=== PATIENT | male | born 1970 | race Caucasian/White ===

== ENCOUNTER 2019-09-05 15:07 | Observation (INO) | payer BC ==
--- NOTE | 2019-09-05 15:41 | ED ---
HPI Chest Pain - HPI Summary HPI Summary: This patient is a 49 year old F presenting to ED with a chief complaint of intermittent chest pain, diaphoresis, and shortness of breath since yesterday. Patient has recently been complaining of intermittent chest pain. Patient reports having cold sweats for the past two weeks. Patient has not had a fever, cough. Since yesterday, patients heart has been skipping all day, which is the first time that has ever happened. PMHx of HTN, CHF, DM. No history of DVT, PE, or atrial fibrillation. The patient rates the pain 3/10 in severity. Symptoms aggravated by nothing. Symptoms alleviated by nothing. - History of Current Complaint Chief Complaint: EDChestPainROMI Hx Obtained From: Patient Onset/Duration: Started Days Ago, Still Present Timing: Intermittent Initial Severity: Mild Current Severity: Mild Pain Intensity: 3 Pain Scale Used: 0-10 Numeric Character: Skipped Beats Aggravating Factor(s): Nothing Alleviating Factor(s): Nothing Associated Signs and Symptoms: Positive: Chest Pain, Shortness of Breath, Diaphoresis, Palpitations. Negative: Fever, Cough - Allergy/Home Medications Allergies/Adverse Reactions: Allergies Allergy/AdvReac Type Severity Reaction Status Date / Time Penicillins Allergy Unknown Verified 09/05/19 15:17 Reaction Details PMH/Surg Hx/FS Hx/Imm Hx Endocrine/Hematology History: Reports: Hx Diabetes Cardiovascular History: Reports: Hx Congestive Heart Failure, Hx Hypertension - Surgical History Surgery Procedure, Year, and Place: Denies Infectious Disease History: No Infectious Disease History: Denies: Traveled Outside the [place] in Last 30 Days - Family History Known Family History: Positive: Cardiac Disease - Social History Alcohol Use: None Hx Substance Use: No Substance Use Type: Reports: None Hx Tobacco Use: Yes Smoking Status (MU): Never Smoked Tobacco Do You Chew or Dip Tobacco: Yes Review of Systems Positive: Skin Diaphoresis. Negative: Fever Positive: Palpitations, Chest Pain Positive: Shortness Of Breath. Negative: Cough All Other Systems Reviewed And Are Negative: Yes Physical Exam - Summary Physical Exam Summary: Constitutional: Morbidly obese Skin: Warm, Dry HENT: Normocephalic; Atraumatic Eyes: Conjunctiva normal Neck: Musculoskeletal ROM normal neck. (-) JVD, (-) Stridor, (-) Tracheal deviation Cardio: Irregular rhythm. Pulmonary/Chest wall: Decreased breath sounds bilaterally secondary to body habitus. Abd: Obese, non-tender, no distension. Musculoskeletal: Bilateral lower extremity lymphedema, no calf tenderness. Lymph: (-) Cervical adenopathy Neuro: Alert, Oriented x3 Psych: Mood and affect Normal Triage Information Reviewed: Yes Vital Signs On Initial Exam: Initial Vitals Temp Pulse Resp BP Pulse Ox 97.1 F 91 16 151/95 97 09/05/19 15:15 09/05/19 15:15 09/05/19 15:15 09/05/19 15:15 09/05/19 15:15 Vital Signs Reviewed: Yes Procedures - Sedation Patient Received Moderate/Deep Sedation with Procedure: No Diagnostics - Vital Signs Vital Signs Temp Pulse Resp BP Pulse Ox 09/05/19 15:15 97.1 F 91 16 151/95 97 - Laboratory Result Diagrams: 09/05/19 15:39 09/05/19 15:38 Lab Statement: Any lab studies that have been ordered have been reviewed, and results considered in the medical decision making process. - Radiology CXR Radiology Interpretation Completed By: Radiologist Summary of Radiographic Findings: #. No acute pulmonary or cardiac process evident. Dr. Cardoza has reviewed this radiology report. - CT Chest/thorax CTA CT Interpretation Completed By: Radiologist Summary of CT Findings: #. Limited exam without gross evidence for pulmonary embolism. #. Mild bilateral subsegmental atelectasis. No compelling pneumonia or suspicious focal pulmonary lesions. Negative for pleural effusions or pneumothorax. #. No compelling evidence for pulmonary edema. Dr. Cardoza has reviewed this radiology report - EKG 1512 Cardiac Rate: NL - 95 BPM EKG Rhythm: Atrial Fibrillation Summary of EKG Findings: An EKG at 1512 revealed atrial fibrillation at 95 BPM, RBBB, no STEMI. Dr. Cardoza has reviewed and interpreted this EKG. Re-Evaluation - Re-Evaluation First Eval Re-Evaluation Time: 17:59 Comment: Discussed results with patient. Patient states that he does not want to be admitted to [facility]. Second Eval Re-Evaluation Time: 18:10 Comment: Discussed CTA results and Dr. Díaz's recommendations with patient. Patient agrees to be admitted. Chest Pain Course/Dx - Course Course Of Treatment: This patient is a 49 year old F presenting to ED with a chief complaint of intermittent chest pain, diaphoresis, and shortness of breath since yesterday. When patient stood up to get on the weight scale, his HR jumped to 145. An EKG at 1512 revealed atrial fibrillation at 95 BPM, RBBB, no STEMI. CXR: #. No acute pulmonary or cardiac process evident. Blood work revealed BUN 25, BUN/creatinine ratio 23.1, glucose 234, and BNP 222. Chest/ thorax CTA: #. Limited exam without gross evidence for pulmonary embolism. #. Mild bilateral subsegmental atelectasis. No compelling pneumonia or suspicious focal pulmonary lesions. Negative for pleural effusions or pneumothorax. #. No compelling evidence for pulmonary edema. Discussed patient case with Dr. Díaz , special day class teacher, who strongly recommended the patient be admitted for an echo and potential cardioversion. I gave the patient heparin. Discussed patient case with Dr. Flowers, hospitalist, who accepted the patient for admission to [facility]. - Diagnoses Provider Diagnoses: New onset a-fib, Morbid obesity - Provider Notifications Discussed Care Of Patient With: Josh Díaz Time Discussed With Above Provider: 18:05 Instructed by Provider To: Admit As Observation - Discussed patient case with Dr. Díaz, special day class teacher, who strongly recommended the patient be admitted. He also suggested heparin. At 1843, discussed patient case with Dr. Flowers, hospitalist, who accepted the patient for admission to [facility]. Discharge ED - Sign-Out/Discharge Documenting (check all that apply): Patient Departure - Admit - Discharge Plan Condition: Fair Disposition: ADMITTED TO [facility] Referrals: Elizabeth Ross [Primary Care Provider] - - Billing Disposition and Condition Condition: FAIR Disposition: Admitted to [facility] - Attestation Statements Document Initiated by Renue: Yes Documenting Scribe: Alejandro Savage Provider For Whom Sherita is Documenting (Include Credential): Steven Cardoza DO Scribe Attestation: IAlejandro scribed for Steven Cardoza DO on 09/05/19 at 1905. Scribe Documentation Reviewed: Yes Provider Attestation: The documentation as recorded by the Alejandro zafar accurately reflects the service I personally performed and the decisions made by me, Steven Cardoza DO Status of Scribe Document: Viewed
[2019-09-05 15:48] LABS: ABS Eosinophils 0.3 10^3/ul (0-0.6); ABS Lymphocytes 1.9 10^3/ul (1.0-4.8); ABS Monocytes 0.6 10^3/ul (0-0.8); ABS Neutrophils 5.7 10^3/ul (1.5-7.7); Eosinophil % 3.2 %; Hematocrit 45 % (42-52); Hemoglobin 15.1 g/dL (14.0-18.0); Lymphocyte % 22.5 %; Mean Corpuscular HGB Conc 34 g/dL (31-36); Mean Corpuscular Hemoglobin 30 pg (27-31); Mean Corpuscular Volume 90 fL (80-94); Mean Platelet Volume 7.9 fL (7.4-10.4); Nucleated Red Blood Cells % 0.2; Platelet Count 315 10^3/uL (150-450); Red Blood Count 5.02 10^6 /uL (4.18-5.48); Red Cell Distribution Width 15 % (10-15); White Blood Count 8.6 10^3/uL (3.5-10.8)
[2019-09-05 15:57] LABS: Activated Partial Thrombo Time 35.2 seconds (26.0-38.0); INR 0.94 (0.82-1.09)
[2019-09-05 16:14] LABS: Albumin 4.4 g/dL (3.2-5.2); Albumin/Globulin Ratio 1.4 (1-3); BUN/Creatinine Ratio 23.1 (8-20); Calcium 9.5 mg/dL (8.6-10.3); EGFR African American 88.3 (>60); Globulin 3.1 g/dL (2-4); Potassium 4.1 mmol/L (3.5-5.0); Total Bilirubin 0.8 mg/dL (0.2-1.0); Total Protein 7.5 g/dL (6.4-8.9)
[2019-09-05] MEDS ORDERED: NS 0.9% 1000 ML** 1,000 ML IV ONE (16:47)
[2019-09-05] MEDS ORDERED: Iohexol 350* (CONTRAST) 500 ML MDV IV ONE (16:55)
[2019-09-05] MEDS ORDERED: Iodixanol* (CONTRAST) 320 MG/ML 100 ML SDV IV ONE (17:18)
[2019-09-05] MEDS: Heparin VIAL(*) 5000 UNITS/ML VIAL (FIVE THOUSAND) IV SCH (18:52)
[2019-09-05] MEDS: Heparin DRIP 25,000 UNITS(*) 25,000 UNITS/500 ML BAG IV SCH ×2 (18:53→21:08)
[2019-09-05 19:04] LABS: Troponin I 0.03 ng/mL (<0.03)
[2019-09-05] MEDS ORDERED: Dextrose 50% Syringe 50 ML* 25 GM/50 ML SYRINGE IV PUSH PRN (19:52)
[2019-09-05] MEDS: oxyCODONE/Acetamin 5/325 MG* TAB PO PRN (20:27)
[2019-09-05] MEDS: oxyCODONE TAB* 5 MG TAB PO PRN (20:27)
[2019-09-05] MEDS: Insulin LISPRO* 1 UNITS UNIT SUBCUT SCH (22:05)
[2019-09-05] MEDS: Gabapentin CAP(*) 100 MG PO SCH (22:22)
[2019-09-05] MEDS: Metoprolol Tartrate TAB* 50 mg PO SCH (22:24)
--- NOTE | 2019-09-05 22:44 | HP ---
CC: EFREN Kraft; Dr. Josh Díaz * HISTORY AND PHYSICAL: DATE OF ADMISSION: 09/05/19 PRIMARY CARE PROVIDER: EFREN Kraft CHIEF COMPLAINT: Heart skipping beats, chest discomfort. HISTORY OF PRESENT ILLNESS: Mr. Yan Bowen is a 49-year-old male with past medical history of type 2 diabetes, neuropathy, hernia, lymphedema, hypertension , who now presents to the emergency room because of a sensation that his heart is skipping beats. He reports that about 2 weeks ago, he had chest discomfort for 2 days, which was intermittent chest pain, it resolved on its own. Shortly thereafter, he started to feel unwell associated with sensation that his heart is skipping beat. This is associated with cold sweat, the issue did not resolve on its own, so the patient decided to come to the emergency room. He does not have any fevers, he does not have any shortness of breath, no palpitations per se, but he feels as if the heart is skipping beats, no orthopnea, he does have sleep apnea for which he uses CPAP. The patient does not have any history of bleeding, no episodes where he required a blood transfusion, he reports his last bowel movement was yesterday, his stool is typically brown with no blood. No dark discoloration. In the emergency room, the patient was seen and evaluated, blood work, EKG, imaging were obtained. Emergency room physician did speak with Dr. Díaz, kindergarten assistant, who recommended admitting the patient to the hospital, subsequently the hospitalist service was contacted. It should be noted that the patient's heart rate is going in to the 110's when the patient ambulates or does any exertion. PAST MEDICAL HISTORY: 1. Type 2 diabetes. 2. Neuropathy. 3. Lymphedema. 4. Hypertension. 5. Episodes of cellulitis. 6. Umbilical hernia. PAST SURGICAL HISTORY: Pyloric stenosis surgery as an . HOME MEDICATIONS: Include: 1. Oxycodone/Tylenol 10/325 one tab every 5 hours as needed for moderate pain. 2. Ozempic 0.5 mg subcutaneous weekly. 3. Metformin 1000 mg b.i.d. 4. Tresiba 34 units subcu daily. 5. Jardiance 25 mg daily. 6. Cymbalta 60 mg daily. 8. Motrin 800 mg b.i.d. 9. Neurontin 200 mg twice a day. 10. Micardis/telmisartan 40 mg daily. 11. Allopurinol 100 mg daily. 12. Bystolic 5 mg daily. 13. Lasix 40 mg daily. 14. Nitroglycerin 0.4 mg sublingual every 5 hours as needed. 15. Aspirin 81 mg daily. ALLERGIES: Include PENICILLIN. FAMILY HISTORY: Mother: Hypertension, seizures, DVT. Father side of the family has heart disease, his father at age 59, his father's initial heart attack was at age 36. SOCIAL HISTORY: The patient lives at home, is self-employed as a compliance representative dealer , he chews tobacco with occasional alcohol use. The patient is , has children. REVIEW OF SYSTEMS: The patient does not have any fevers; however, does have some cold sweats. No sore throat, no changes in his vision or hearing, no issues with swallowing. Cardiovascular: See HPI. Does not have any shortness of breath. No cough, no sputum production. No abdominal pain, no nausea, no vomiting, no diarrhea. He has occasional joint aches and back pain. No recent rashes or lesions. He had a headache earlier today, however, no focal weakness or numbness. No lightheadedness, no dizziness, no episodes of fall. PHYSICAL EXAMINATION GENERAL: This is a super obese male, lying in bed, in no acute distress. VITAL SIGNS: Blood pressure is 107/78, heart rate of 86, respiratory rate of 22 , saturation of 97% on room air, temperature of 97.1 Fahrenheit. The patient's BMI is 78.5, his weight is listed as 595 pounds, his height is 6 feet 1 inch. HEENT: Pupils are equal, round, and reactive to light. Atraumatic, normocephalic. Oral mucosa is moist. There is no nystagmus. There is no JVD. LUNGS: There is no tachypnea, no use of accessory muscles. No wheezing, rales , or rhonchi. HEART: There is no chest wall tenderness, irregularly irregular, I did not appreciate any murmurs, rubs, or gallops. ABDOMEN: Normoactive bowel sounds. Abdomen is soft, nontender, nondistended. EXTREMITIES: There is 1+ pitting edema at the bilateral lower extremities. Radial pulses 2+ bilaterally. NEUROLOGICAL: The patient is awake, alert, oriented x3. His tongue is midline. There is no facial droop. Speech is clear and coherent. He is moving all 4 extremities without any focal weakness. SKIN: There are no rashes or lesions. Skin is warm and dry. LABORATORY DATA AND IMAGING: Sodium of 136, potassium 4.1, chloride 101, bicarb 25, anion gap 10, BUN 25, creatinine 1.08, glucose 234, calcium 9.5, magnesium is 2.0, total bilirubin 0.80. AST 18, ALT 26, alkaline phosphatase 72. Troponin of 0.00, second troponin is 0.03. BNP of 222. Albumin of 4.4. WBC of 8.6, hemoglobin of 15.1, hematocrit 45, MCV of 90, platelet of 315. INR of 0.94, PTT of 35.2, D-dimer is less than 200. The patient had an EKG done, which shows right bundle-branch block with atrial fibrillation with heart rate of 95. There is no EKG available for prior comparison. The patient also underwent a chest x-ray, which reveals obese body habitus limits image quality, clear lungs and pleural spaces, negative for pneumothorax , upper normal heart size, unremarkable central pulmonary vasculature and mediastinal contours. Also underwent chest thorax CTA, which revealed limited exam without gross evidence for pulmonary embolism, mild bilateral subsegmental atelectasis, no compelling pneumonia or suspicious focal pulmonary lesions, negative for pleural effusion or pneumothorax. No compelling evidence for pulmonary edema. IMPRESSION AND PLAN: 1. New-onset atrial fibrillation: Due to the patient's history of diabetes and hypertension, the patient's CHADS-VASc score is currently 2. The patient has been initiated with heparin drip in the emergency room; at this point we will continue. Case is also discussed with Dr. Josh Díaz, who will consult on the patient, we will obtain an echocardiogram, TSH. I have changed the patient's nebivolol to metoprolol for heart rate control. In the morning, Cardiology to decide if they should choose rhythm control in the form of cardioversion or not. I will leave this up to the kindergarten assistant. 2. History of diabetes: The patient reports that his last A1c was 7.5. At this point, I have encouraged him to lose weight as this would help control his diabetes. Due to the patient being n.p.o. after midnight for possible cardioversion, I have held his oral hypoglycemics. We will start the patient on an insulin sliding scale and I have continued the patient's long-acting insulin. 3. History of hypertension: Continue Lasix. His ARB agent will be substituted for what is on our formulary, his nebivolol has been replaced by metoprolol. 4. Chronic pain syndrome: Percocet as needed. 5. Obesity: Weight loss has been recommended. Ultimate plan of anticoagulation given that he is obese would be Coumadin. I have ordered an INR for tomorrow morning. At this point, I will hold off on Coumadin start as the patient is going to undergo cardioversion. Should there be any complications, it will be nice to have him on a short-acting anticoagulation such as heparin drip. 6. History of lymphedema. 7. History of neuropathy, on Neurontin. 8. For DVT prophylaxis, continue heparin drip for atrial fibrillation. 9. He will be n.p.o. after midnight, otherwise he will be on consistent carb diet. [id number]/[facility] #: [id number] MEGA
[2019-09-06] MEDS: Heparin VIAL(*) 5000 UNITS/ML VIAL (FIVE THOUSAND) IV SCH (01:19)
[2019-09-06] MEDS ORDERED: Perflutren Lipid Microsphere* 3 ML VIAL ONE (07:23)
[2019-09-06] MEDS: oxyCODONE TAB* 5 MG TAB PO PRN ×2 (07:30→14:25)
[2019-09-06] MEDS: Heparin DRIP 25,000 UNITS(*) 25,000 UNITS/500 ML BAG IV SCH (07:32)
[2019-09-06] MEDS: Insulin LISPRO* 1 UNITS UNIT SUBCUT SCH ×2 (08:19→13:16)
[2019-09-06] MEDS: Gabapentin CAP(*) 100 MG PO SCH (08:20)
[2019-09-06 08:52] LABS: ABS Basophils 0.1 10^3/ul (0-0.2); ABS Eosinophils 0.2 10^3/ul (0-0.6); ABS Lymphocytes 1.2 10^3/ul (1.0-4.8); ABS Monocytes 0.4 10^3/ul (0-0.8); ABS Neutrophils 4.6 10^3/ul (1.5-7.7); Eosinophil % 2.8 %; Hematocrit 42 % (42-52); Hemoglobin 14.3 g/dL (14.0-18.0); Lymphocyte % 19.2 %; Mean Corpuscular HGB Conc 34 g/dL (31-36); Mean Corpuscular Hemoglobin 30 pg (27-31); Mean Corpuscular Volume 90 fL (80-94); Mean Platelet Volume 7.5 fL (7.4-10.4); Platelet Count 237 10^3/uL (150-450); Red Blood Count 4.74 10^6 /uL (4.18-5.48); Red Cell Distribution Width 16 % (10-15); White Blood Count 6.5 10^3/uL (3.5-10.8)
[2019-09-06] MEDS ORDERED: Allopurinol TAB* 100 MG PO SCH (09:00)
[2019-09-06] MEDS ORDERED: Insulin GLARGINE(*) 1 UNITS UNIT SUBCUT SCH (09:00)
[2019-09-06] MEDS ORDERED: Furosemide TAB* 40 MG PO SCH (09:00)
[2019-09-06] MEDS ORDERED: DULoxetine DR CAP* 60 MG CAP.DR PO SCH (09:00)
[2019-09-06] MEDS ORDERED: Losartan TAB* 25 MG PO SCH (09:00)
[2019-09-06 09:10] LABS: Magnesium 1.9 mg/dL (1.9-2.7); Phosphorus 3.8 mg/dL (2.5-5.0)
[2019-09-06] MEDS: oxyCODONE/Acetamin 5/325 MG* TAB PO PRN ×2 (09:10→14:25)
[2019-09-06] MEDS: Metoprolol Tartrate TAB* 50 mg PO SCH (09:11)
[2019-09-06 09:33] LABS: TSH (Thyroid Stimulating Horm) 2.42 mcIU/mL (0.34-5.60)
--- NOTE | 2019-09-06 09:57 | ECHO ---
*[facility]* [place] [address] Fax #: [phone] Transthoracic Echocardiogram Patient: Yan Bowen : 1970 Study Date: 09/06/2019 Age: 49 Gender: M HR: 97 bpm Height: 73 in /185.4 cm BSA: 3.42 m^2 Weight: 595.8 lb /270.8 kg BMI: 78.8 kg/m^2 *Wireworker Supervisor: * Gina Pulido RDCS RN *Referring Physician: * Lila Key *Reading Physician: * Samuel Torres MD Indications: Atrial Fibrillation. History: Murmur. Lymphedema. Risk factors: Hypertension. Diabetes mellitus. Morbidly obese. Family history is significant for coronary artery disease. Conclusions Summary: - Left ventricle: Systolic function is normal. The estimated ejection fraction is 55-60%. Wall motion is normal; there are no regional wall motion abnormalities. - Right ventricle: Systolic function is low normal. - Left atrium: The atrium is mildly dilated. - Mitral valve: There is trace regurgitation. - Aortic valve: The findings are consistent with mild stenosis. There is no significant regurgitation. The peak systolic velocity is 2.2 m/sec. The mean systolic gradient is 12.0 mm Hg. The LVOT to aortic valve VTI ratio is 0.48. - Tricuspid valve: There is trace regurgitation. - Pulmonary arteries: Systolic pressure can not be accurately estimated. - Study data: No prior study is available for comparison. Study data: Transthoracic echocardiogram. Procedure: Transthoracic echocardiography was performed. Image quality was fair. The study was technically limited due to body habitus. Intravenous Definity 4 ml was administered to enhance imaging. Complete 2D, spectral Doppler, and color flow Doppler. Location: Bedside. Patient status: Observation. Patient room number: 442-02. No prior study is available for comparison. Rhythm: Atrial fibrillation. Findings Left ventricle: The cavity size is normal. Wall thickness is mildly increased. Systolic function is normal. The estimated ejection fraction is 55-60%. Wall motion is normal; there are no regional wall motion abnormalities. There is no consistent Doppler evidence of clinically significant diastolic dysfunction. Right ventricle: Not well visualized. The cavity size is mildly dilated. Systolic function is low normal. Left atrium: The atrium is mildly dilated. Right atrium: The atrium is mildly dilated. Mitral valve: The leaflets are mildly thickened. There is no evidence of stenosis. There is trace regurgitation. Aortic valve: The annulus is calcified. The leaflets are mild-moderately thickened, especially the LCC which has decreased excursion. The findings are consistent with mild stenosis. There is no significant regurgitation. Tricuspid valve: Not well visualized. There is trace regurgitation. Pulmonic valve: The valve is structurally normal. There is no evidence of stenosis. There is no significant regurgitation. Aorta: Aortic root: The aortic root is not dilated. Ascending aorta: The ascending aorta is not dilated. Aortic arch: The aortic arch is not dilated. Pericardium: A prominent pericardial fat pad is present. There is no significant pericardial effusion. Pulmonary arteries: The main pulmonary artery is normal-sized. Systolic pressure can not be accurately estimated. Systemic veins: Inferior vena cava: Not well visualized. Measurements Left ventricle Value Ref Right atrium Value Ref POWER, LAX 5.7 cm 4.2 - 5.8 ML dim, ES, A4C (H) 4.7 cm 2.6 - 4.4 ESD, LAX 3.9 cm 2.5 - 4.0 SI dim, ES, A4C (H) 5.4 cm 3.4 - 5.3 FS, LAX 31 % 25 - 43 PW, ED, LAX (H) 1.2 cm 0.6 - 1.0 Aortic valve Value Ref PW, ED (H) 1.2 cm 0.6 - 1.0 Aramis diam, ED 2.5 cm --------- IVS/PW, ED 0.99 Aramis diam/bsa, ED 0.7 cm/m^2 --------- E', lat aramis, TDI 17.0 cm/sec >=10.0 Peak v, S 2.2 m/sec -- ------- E/e', lat aramis, 6 VTI, S 39.6 cm ----- ---- TDI Mean grad, S 12.0 mm Hg --------- E', med aramis, TDI 9.6 cm/sec >=7.0 Peak grad, S 18.0 mm Hg -- ------- E/e', med aramis, 10 LVOT/AV, VTI ratio 0.48 ----- ---- TDI BRIDGETT, VTI 2.17 cm^2 --------- E', avg, TDI 13.3 cm/sec BRIDGETT, Vmax 2.30 cm^2 ----- ---- E/e', avg, TDI 8 <=14 Mitral valve Value Ref LVOT Value Ref Peak E 1 m/sec --------- Diam, S 2.40 cm Decel time 217 ms --------- Area 4.5 cm^2 Peak grad, D 4.0 mm Hg --------- Peak vannessa, S 1.12 m/sec VTI, S 19.0 cm Pulmonic valve Value Ref Peak grad, S 5 mm Hg Peak v, S 0.97 m/sec --------- Mean grad, S 3 mm Hg Peak grad, S 4.0 mm Hg --------- SV 86 ml SV/bsa 25 ml/m^2 Aortic root Value Ref Root diam 3.5 cm <5.2 Ventricular septum Value Ref IVS, ED (H) 1.2 cm 0.6 - 1.0 Ascending aorta Value Ref AAo AP diam, S 3.5 cm --------- Right ventricle Value Ref POWER minor ax, (H) 3.9 cm 1.9 - 3.5 Aortic arch Value Ref A4C mid Arch diam 3.4 cm --------- Left atrium Value Ref Decending aorta Value Ref AP dim, ES (H) 4.90 cm 3.00 - Bakari peak vannessa 1.1 m/sec --------- 4.00 ML dim, A4C 4.0 cm SI dim, A4C 5.8 cm Vol/bsa, ES, 1-p 19 ml/m^2 12 - 37 A4C Vol/bsa, ES, A/L 27 ml/m^2 16 - 34 Legend: (L) and (H) troy values outside specified reference range. Prepared and electronically signed by Samuel Torres MD 09/06/2019 09:57
[2019-09-06] MEDS ORDERED: Metoprolol Tartrate IV* 1 MG/ML 5 ML VIAL IV ONE (10:03)
[2019-09-06] MEDS ORDERED: Diltiazem CD CAP* 120 MG PO SCH (12:00)
--- NOTE | 2019-09-06 12:54 | CONS ---
CARDIOLOGY CONSULTATION DATE OF CONSULTATION: 09/06/2019. ATTENDING PHYSICIAN: Dr. Samuel Torres (dictated by Luna Valenzuela NP). PRIMARY CARE PHYSICIAN: Elizabeth Streeter NP. PRIMARY SUPERINTENDENT METERS: None. REASON FOR CONSULTATION: New diagnosed A-fib. HISTORY OF PRESENT ILLNESS: This is a pleasant, 49-year-old, morbidly obese, male patient with a notable history of uncontrolled type 2 diabetes, obstructive sleep apnea, compliant with CPAP therapy, lymphedema, and hypertension who presented to [facility] on 09/05/2019 due to ongoing complaints of palpitations. The patient states that he has a longstanding history of intermittent palpitations that have been occurring for approximately two to three years. In the past, palpitations would be brief and would typically abort with coughing. He states that he has had constant palpitations since Thursday evening. He adds that he has not been noticing his heart race, but he has been noticing irregularity. He states that he decided to present to the emergency department 09/05/2019 due to palpitations persisting and not responding to vagal mechanism. The patient denies dizziness , syncope, or shortness of breath. He does report intermittent chest pain. He adds that two weeks ago he had sharp intermittent chest pain occurring four times a day for approximately a week straight and has not had a recurrence of chest pain since that time. He adds that chest pain was not related to activity , inspiration or palpation and did not resolve with any medications. Episodes would resolve on their own. Again, he has not had chest since two weeks ago. He has, however, noticed increased fatigue and chills. He denies any other recent illness or infection. Again, denies dizziness or syncope. While being evaluated in the emergency department, he was noted to be in A-fib, heart rate 90s. He was admitted to [facility]. We were asked to see the patient in consultation due to newly diagnosed A-fib. This current time, he is in A-fib with a rate 100 to 110 beats per minute with minimal activity, such as sitting up in bed. His heart rate does elevate to 130 to 160 beats per minute. While I was interviewing him, he was not aware of A- fib, thus he is sometimes symptomatic and sometimes is not, making duration of time in A-fib unknown. Last echocardiogram was in 2014. Per report, mild LVH, normal systolic function , normal wall motion, no thrombus present, left atrial size was normal, no thrombus seen in the left atrium, aortic root was not dilated, no aortic stenosis or regurgitation, no mitral stenosis, no tricuspid stenosis, mild tricuspid insufficiency. Last ECG, which was obtained by his primary provider, was 03/10/2016. At that time, he was in normal sinus rhythm with incomplete right bundle branch block. No ST change is appreciated. Last ischemic evaluation per patient, stress test more than five years ago. PAST MEDICAL HISTORY: 1. Uncontrolled type 2 diabetes mellitus. 2. Hypertension. 3. Obstructive sleep apnea. 4. Osteoarthritis. 5. Lymphedema. 6. 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 HOME MEDICATIONS: Per admission med rec: 1. Aspirin 81 mg a day. 2. Lasix 40 mg a day. 3. Bystolic 5 mg a day. 4. Telmisartan 40 mg a day. 5. Gabapentin 200 mg p.o. b.i.d. 6. Cymbalta 60 mg a day. 7. Jardiance 25 mg a day. 8. Tresiba Flextouch 34 units subcutaneously daily. 9. Metformin 1,000 mg p.o. b.i.d. 10. Ozempic 0.5 mg subcutaneous weekly. 11. Percocet 10/325 one tablet p.o. q.5h prn. ALLERGIES: PENICILLIN. Denies allergy to contrast to shellfish. FAMILY HISTORY: Father at the age of 59 due to complications from myocardial infarction. The patient adds this his father's first myocardial infarct was at the age of 36. The patient's paternal aunt at the age of 21 due to reported myocardial infarction. His sister has a history of A-fib and is otherwise healthy and living. His brother has reported cardiac history, but the patient is not clear as to what he suffers from. His mother in her 60s. She had a history of hypertension, diabetes, and a blood clot. SOCIAL HISTORY: The patient is . He resides with his . He is disable. In regards to activity, the most exertional thing he does is wash his dishes. He reports chewing one can of tobacco a day. He denies illegal drug use or alcohol consumption. REVIEW OF SYSTEMS: All systems have been reviewed and are otherwise negative except for above mentioned HPI. PHYSICAL EXAM: General: The patient is lying upright in bed with his at the bedside. He appears in no apparent distress. His BMI 78.8. Cooperative, pleasant, alert and oriented times three. Vital Signs: Temperature 97.1, pulse 96, respirations 18, oxygenation 97 percent on room air, blood pressure 121/63. HEENT: Head is atraumatic, normocephalic. Oral mucosa is moist. Tongue is midline. Neck: Supple, trachea midline. Unable to assess for JVD. No carotid bruits. Cardiac: Normal S1, S2. Irregular rate and rhythm. There is a grade 2/6 systolic aortic murmur. No gallop or rub. Lungs: Auscultated posteriorly. No evidence of adventitious breath sounds. Respirations unlabored. /GI: Abdomen is obese, nontender. Hypoactive bowel sounds times four. Unable to assess for hepatomegaly due to the patient's body habitus. Extremities: The patient has bilateral nonpitting edema. Otherwise no clubbing and no cyanosis. DIAGNOSTIC STUDIES/LAB DATA: Blood work from 09/06/2019 reviewed a white count of 6.5, hemoglobin 14.3, hematocrit 42, platelets 237; INR 1; sodium 136, potassium 4.1, chloride 101, carbon dioxide 25, BUN 25, creatinine 1.08, troponin peaked at 0.03 at 1829 09/05/2019, BNP 222, TSH 2.42. ECG 09/06/2019 revealed A-fib rate 96 with complete right bundle branch block. Chest/thoracic CTA, 09/05/2019, per radiology report: Limited exam due to patient's body size, but no gross evidence of PE. No compelling evidence of pneumonia or suspicious focal pulmonary lesions. Negative for pleural effusions or pneumothorax. Echocardiogram, 09/05/2019: Per report: LVF 55 to 60 percent, no regional wall motion abnormalities, mild left atrial dilatation, trace mitral insufficiency, mild aortic stenosis, mean systolic gradient 12, trace tricuspid insufficiency, 3.5 cm aortic root. ASSESSMENT AND PLAN: 1. Newly diagnosed paroxysmal A-fib, currently in A-fib with heart rate ranging from 90 beats per minute to 150 beats per minute with minimal activity such as sitting up in bed. The patient is sometimes symptomatic and sometimes not. Thus, duration of time in A-fib is unknown. His home Bystolic has been discontinued and he has instead been placed on Lopressor 50 mg p.o. b.i.d. At this current time, will transition to Toprol 50 mg p.o. b.i.d., the first dose tonight. Will give 5 mg IV Lopressor time one now. His CHADS-VASc is 2. Due to BMI being 78.8, would not advocate for direct oral anticoagulant. Would recommend initiating Coumadin with an INR goal of 2 to 3. I did personally speak with the patient's primary provider, Elizabeth Streeter NP, who states that she will arrange for home PT/INR draw; however, it would take at least one to two weeks to arrange, thus the patient will need close follow-up with primary care provider for INR assessment. Will add Cardizem CD 120 mg a day to the patient' s regimen. The patient will need close follow-up with our practice in the next two to three weeks. I emphasized the importance of compliance with CPAP therapy. TSH was normal. Recommend rate control approach if the patient does not convert on his own in the next four to six weeks. Can consider outpatient cardioversion after he has been adequately anticoagulated for a minimal of four weeks. 2. Minimal troponin elevation: Likely due to above #1. The patient has had periods with ventricular rate in the 160s with minimal activity. There are no regional wall motion abnormalities noted in echocardiogram. Has not had any episodes of chest pain in the past two weeks. He did complain of atypical greater than typical complaints of chest pain occurring two weeks ago, not related to activity. Risk factors include uncontrolled type 2 diabetes mellitus , hypertension, and family history of premature cardiac in first degree relatives. He would benefit from eventual ischemic evaluation, outpatient; however, his body weight will be a limiting factor in regards to determining a facility able to perform stress test. Will address in follow-up. 3. History of hypertension: Currently normotensive on current medical therapy. 4. Mild aortic stenosis: Mean gradient 12. 5. Disposition: Pending course. The patient is full code. Dr. Samuel Torres has personally seen and examined the patient and agrees with above assessment and plan. LUNA VALENZUELA NP [id number]/[facility] #: [id number] ME[place]
[2019-09-06 16:56] VITALS: BP 118/48
[2019-09-06] MEDS ORDERED: Warfarin TAB(*) 5 MG PO SCH (17:00)
[2019-09-06] MEDS ORDERED: Metoprolol Succinate XL TAB* 50 MG PO SCH (21:00)
--- NOTE | 2019-09-06 21:54 | DS ---
CC: Elizabeth Streeter NP; Luna Valenzuela NP * DISCHARGE SUMMARY: DATE OF ADMISSION: 09/05/19 DATE OF DISCHARGE: 09/06/19 PRIMARY CARE PROVIDER: Elizabeth Streeter NP ATTENDING PHYSICIAN: Dr. Vahid Flowers.* (DICTATED BY YESICA ARGUETA NP) PRIMARY DIAGNOSIS: 1. New onset atrial fibrillation with rapid ventricular response. SECONDARY DIAGNOSES: 1. Diabetes mellitus type 2. 2. Hypertension. 3. Chronic pain. 4. Lymphedema. 5. Diabetic neuropathy. 6. Super morbid obesity, BMI 78. STUDIES WHILE IN THE HOSPITAL: 1. EKG on 09/05/19 shows atrial fibrillation with a rate of 95, right bundle- branch block. 2. Chest x-ray on 09/05/19 reads as no acute pulmonary or cardiac process evident. 3. Chest CTA on 09/05/19 reads as limited exam without gross evidence of pulmonary embolism. Mild bilateral subsegmental atelectasis. No compelling pneumonia or suspicious focal pulmonary lesions. Negative for pleural effusion or pneumothorax. No compelling evidence for pulmonary edema. 4. EKG on 09/06/19 shows atrial fibrillation with a rate of 96, right bundle- branch block. 5. Transthoracic echocardiogram on 09/06/19 reads as the left ventricular systolic function is normal. The estimated ejection fraction is 55% to 60%, wall motion is normal and there are no regional wall motion abnormalities. Right ventricular systolic function is low normal. The left atrium is mildly dilated. There is trace MR. The findings are consistent with mild . There is no significant AR. There is trace TR. Systolic pressure in the pulmonary arteries cannot be accurately estimated. No prior study is available for comparison. HISTORY OF PRESENT ILLNESS AND HOSPITAL COURSE: Mr. Bowen is a 49-year-old male with a past medical history of type 2 diabetes, diabetic neuropathy, lymphadenopathy, hypertension, and super morbid obesity, who presented to the emergency room on 09/05/19 with complaints of palpitations. Please see the history and physical by Dr. Key for complete summary of events leading up to this hospitalization. In short, the patient reported that approximately 2 weeks ago he had some chest discomfort which lasted 2 days. Thereafter, he felt some intermittent palpitations associated with a cold sweat and so the patient presented to the emergency room. In the emergency room, he was noted to be in atrial fibrillation. Rate was generally well controlled at rest, though he was noted to have rapid ventricular response with any exertion and so the patient was admitted by the hospitalist service. The patient was seen this morning by Luna Valenzuela NP from Cardiology. She advised that the patient would not be cardioverted. He was only intermittently symptomatic and at rest, heart rate was generally well controlled. The patient was started on metoprolol succinate and Cardizem CD under Cardiology recommendations. He was noted to have a CHADS-VASc score of 2 and was initially started on a heparin drip though that was discontinued when it was determined that the patient would not be cardioverted. I did speak with Luna Valenzulea NP and Dr. Torres this morning and they advised that the patient would be stable for discharge later today after rate was better controlled with newly added medications. Dr. Torres advised that it would be okay for the patient to continue to have some tachycardia with exertion, especially considering his body habitus. Since starting the above mentioned medications, the patient's heart rate has come down. At this point with exertion, he is not getting any higher than the 140s. He does still have some exercise intolerance, though this is somewhat expected due to obesity, and I anticipate that rate control medications may need to be further titrated as an outpatient though at this point the patient is stable for discharge. Dr. Torres also advised that the patient would not require bridging from heparin to Coumadin. The patient is not eligible for NOAC therapy due to his obesity and so unfortunately, Coumadin is the only option for anticoagulation. PHYSICAL EXAMINATION: On exam, the patient reports feeling well. He is anxious to return to home. He does note feeling tired on exertion though he does feel better today than yesterday. He is alert and oriented x4 with no focal neurological deficits. Heart has an irregular rhythm without murmurs, rubs or gallop. Lungs are clear to auscultation without rhonchi, wheezes or rubs. There is bilateral lower extremity edema. It is unclear how much edema there is due to body habitus. Physical exam is otherwise benign. Mr. Bowen is stable for discharge. Most recent vitals are as follows: Temp 97.3, heart rate 94, respiratory rate 20, oxygen saturation 95% on room air, blood pressure 122/60. DISCHARGE MEDICATIONS: New: 1. Diltiazem CD 120 mg p.o. daily. 2. Metoprolol succinate 50 mg p.o. b.i.d. 3. Warfarin 5 mg p.o. daily. Continued: 1. Allopurinol 100 mg p.o. daily. 2. Duloxetine 60 mg p.o. daily. 3. Furosemide 40 mg p.o. daily. 4. Gabapentin 300 mg p.o. b.i.d. 5. Tresiba 34 units subcu daily. 6. Percocet 10/325 one tab p.o. q.5 hours p.r.n. pain. 7. Olmesartan 40 mg p.o. daily. 8. Jardiance 25 mg p.o. daily. 9. Metformin 100 mg p.o. b.i.d. 10. Nitro 0.4 mg sublingual q.5 minutes p.r.n. angina. 11. Ozempic 0.5 mg subcu weekly. Discontinued: 1. Aspirin. 2. Nebivolol. 3. Ibuprofen. DISCHARGE PLAN: Mr. Bowen will be discharged home. Activity will be as tolerated. Diet will be heart healthy. Medications are noted above. Again, the patient has been started on Cardizem CD, metoprolol succinate for rate control, warfarin has been added for anticoagulation. I have advised the patient to take 5 mg daily for approximately the next 3 days until he is able to get in to see his primary care provider to have his INR checked. I have advised him that he should call his PCP's office tomorrow morning to arrange a time to have his INR checked as it is very unclear how much Coumadin he will need due to obesity. He can continue with other usual medications as noted above and I have not made any further changes. He will need to follow up closely with Cardiology and he does have an appointment with Luna Valenzuela NP on 09/20/19 at 12:45. He will need to follow up with his primary care provider in the next 4 to 7 days. The patient should return to the emergency room or nearest hospital for any worsening of symptoms, shortness of breath, lightheadedness, dizziness, chest discomfort, high fevers, chills, night sweats , loss of consciousness or any other worrisome signs or symptoms. DISCHARGE CONDITION: Stable. DISCHARGE DISPOSITION: Home. This is a summarized report of a complex medical history and hospital stay. For further details, please see the entire medical record. TIME SPENT: Approximately 45 minutes was spent on this discharge. YESICA ARGUETA, WINDOWS INFRASTRUCTURE ENGINEER [id number]/[facility] #: [id number] [place]
== END 2019-09-06 16:56 | disposition home or self-care (01) ==
LOC: ED 15:07 → MEDTELE 19:48
PROVIDERS: ADMIT Internal Medicine; ATTEND Internal Medicine
DX: I48.20 Chronic atrial fibrillation, unspecified (principal); E11.9 Type 2 diabetes mellitus without complications; I10 Essential (primary) hypertension; G89.29 Other chronic pain; I89.0 Lymphedema, not elsewhere classified; E11.40 Type 2 diabetes mellitus with diabetic neuropathy, unspecified; E66.01 Morbid (severe) obesity due to excess calories; Z68.45 Body mass index [BMI] 70 or greater, adult; Z79.899 Other long term (current) drug therapy; Z79.01 Long term (current) use of anticoagulants
CPT/HCPCS: 36415; 71045; 71275; 80053; 83036; 83735; 83880; 84100; 84443; 84484; 85025; 85379; 85610; 85730; 93005; 93306; 94660; 96361; 96374; 99284; A9270-GY; C8929; G0378; J1644; J3490; Q9967

== ENCOUNTER 2020-02-13 08:55 | Inpatient (IN) ==
[2020-02-13 09:51] LABS: BUN/Creatinine Ratio 20.6 (8-20); Calcium 9.4 mg/dL (8.6-10.3); EGFR African American 94.3 (>60); INR 2.6 (0.82-1.09); Potassium 4.3 mmol/L (3.5-5.0)
[2020-02-13] MEDS ORDERED: Buffered Lidocaine 1% SYRIN 1 ml INTRADERM ONE (14:29)
[2020-02-13] MEDS ORDERED: Famotidine IV 10 MG/ML 2 ml VIAL (20 mg) IV ONE (14:29)
[2020-02-13] MEDS: Lactated Ringers 1000 ml BAG 1,000 ML IV SCH ×2 (15:56→23:33)
[2020-02-13] MEDS: Warfarin 5 mg TAB (*) PO SCH (15:56)
[2020-02-13] MEDS: Insulin GLARGINE 100 un/ml (*) 10 ml VIAL SUBCUT SCH (21:21)
[2020-02-14 06:23] LABS: BUN/Creatinine Ratio 21.6 (8-20); Calcium 8.6 mg/dL (8.6-10.3); EGFR Non-African American 82.6 (>60); Magnesium 1.9 mg/dL (1.9-2.7); Potassium 4.1 mmol/L (3.5-5.0)
[2020-02-14] MEDS: Empagliflozin (NF) 25 MG TABLET PO SCH (07:04)
[2020-02-14] MEDS: DULoxetine DR 60 mg CAP PO SCH (07:30)
[2020-02-14] MEDS ORDERED: Famotidine IV 10 MG/ML 2 ml VIAL (20 mg) ONE (09:30)
[2020-02-14] MEDS ORDERED: Naloxone 0.4 mg VIAL 0.4 mg/ml 1 ml VIAL IV PRN (10:30)
[2020-02-14] MEDS ORDERED: DiMENhydriNATE IV 50 mg/ml 1 ml VIAL IV PUSH PRN (10:30)
[2020-02-14] MEDS ORDERED: Remifentanil 2 MG VIAL ONE (10:34)
[2020-02-14] MEDS ORDERED: Propofol 10 MG/ML 20 ML BTL ONE ×3 (10:35→11:03)
[2020-02-14] MEDS ORDERED: Lidocaine 2% PF 5 ML VIAL ONE (10:35)
[2020-02-14] MEDS: Warfarin 5 mg TAB (*) PO SCH (16:00)
[2020-02-14] MEDS: Insulin GLARGINE 100 un/ml (*) 10 ml VIAL SUBCUT SCH (20:53)
[2020-02-15 07:41] LABS: BUN/Creatinine Ratio 23.6 (8-20); Calcium 8.5 mg/dL (8.6-10.3); EGFR African American 110.4 (>60); EGFR Non-African American 91.2 (>60); Magnesium 2.1 mg/dL (1.9-2.7); Potassium 4.2 mmol/L (3.5-5.0)
[2020-02-15] MEDS: Empagliflozin (NF) 25 MG TABLET PO SCH (08:28)
[2020-02-15] MEDS: DULoxetine DR 60 mg CAP PO SCH (08:40)
[2020-02-15 11:43] VITALS: BP 111/38
== END 2020-02-15 15:09 | disposition home or self-care (01) | DRG 862 ==
LOC: MEDTELE 08:55
PROVIDERS: ADMIT Nurse Practitioner Family; ATTEND Specialist